=== PATIENT | female | born 1955 | race Two or more races ===

== ENCOUNTER 2022-08-12 16:18 | Inpatient (IN) | payer OTHER ==
[~2022-08-12] VITALS: Ht 165.1 cm; Wt 78.8 kg
[~2022-08-12 16:18] MED LIST: levoFLOXacin 750MG 150 ML IV ONE
[2022-08-12] MEDS ORDERED: KETOROLAC TROMETH 30 MG/ML 1ML VIAL IV ONE (17:00)
[2022-08-12] MEDS ORDERED: SODIUM CHLORIDE 0.9% 1,000 ML IVB ONE (17:00)
[2022-08-12 17:48] LABS: Basophils # (auto) 0.2 10 ^3/uL (0-0.2); Basophils % (auto) 1.2 % (0.0-2.0); Eosinophils # (auto) 0.1 10 ^3/uL (0-0.8); Eosinophils % (auto) 0.6 % (0.0-7.0); Hematocrit 37.5 % (36.0-46.0); Hemoglobin 12.3 g/dL (12.2-16.2); Lymphocytes # (auto) 1.8 10 ^3/uL (0.4-5.4); Lymphocytes % (auto) 13.4 % (10.0-50.0); Mean Corpuscular Hemoglobin 28.4 pg (28.0-32.0); Mean Corpuscular Hgb Conc. 32.7 g/dL (32.0-36.0); Mean Corpuscular Volume 86.9 fL (80.0-100.0); Monocytes # (auto) 0.7 10 ^3/uL (0-1.3); Monocytes % (auto) 5.6 % (0.0-12.0); Neutrophils # (auto) 10.4 10 ^3/uL (1.6-8.6); Neutrophils % (auto) 79.2 % (37.0-80.0); Red Blood Cells 4.32 10^6/uL (4.0-5.20); Red Cell Distribution Width 13.1 % (11.8-14.3); White Blood Cell 13.1 10^3/uL (4.4-10.8)
[2022-08-12 18:06] LABS: Albumin 3.2 g/dL (3.4-5.0); BUN/Creatinine Ratio 12.8; Calcium 8.4 mg/dL (8.5-10.1); Potassium 3.8 mmol/L (3.5-5.1)
[2022-08-12 18:09] LABS: Bilirubin, Total 1.1 mg/dL (0.2-1.0); Total Protein 6.9 g/dL (6.4-8.2)
[2022-08-12 18:41] LABS: Urine Bacteria FEW /hpf (None Seen); Urine Blood TRACE /uL (Negative); Urine Hyaline Cast FEW /lpf (0 - 2); Urine Mucus FEW (None Seen); Urine Specific Gravity 1.032 (1.001-1.035); Urine WBC 7 /hpf (0 - 5)
[2022-08-12] MEDS ORDERED: metroNIDAZOLE 500MG/100ML 100 ML IV ONE (18:45)
[2022-08-12] MEDS ORDERED: MORPHINE SULFATE 4 MG/ML SYR/VIAL IV ONE (18:45)
[2022-08-12] MEDS ORDERED: ONDANSETRON HCL 4 MG/2 ML VIAL IV ONE (18:45)
[2022-08-12] MEDS ORDERED: MORPHINE SULFATE INJ 2 MG/ml SYRG IV PRN (20:30)
[2022-08-12] MEDS ORDERED: ONDANSETRON HCL 4 MG/2 ML VIAL IV PRN (20:30)
[2022-08-12] MEDS ORDERED: DEXTROSE (50%) 50ML SYRG IV PRN (20:30)
[2022-08-12] MEDS ORDERED: SODIUM CHLORIDE 0.9% 1,000 ML IV SCH (20:30)
[2022-08-12] MEDS: InsuLIN REG 1unit/0.01ml Soln (100units/ml) SC SCH (22:00)
[2022-08-12 22:31] VITALS: BP 136/60
[2022-08-12] MEDS: metroNIDAZOLE 500MG/100ML 100 ML IV SCH (23:20)
[2022-08-12] MEDS: ACCU-CHEK COMFORT CURVE STRIP VI SCH (23:20)
[2022-08-13 04:52] VITALS: BP 143/57
[2022-08-13] MEDS: metroNIDAZOLE 500MG/100ML 100 ML IV SCH ×3 (05:29→21:13)
[2022-08-13 06:04] LABS: Basophils # (auto) 0.1 10 ^3/uL (0-0.2); Basophils % (auto) 0.8 % (0.0-2.0); Eosinophils # (auto) 0.1 10 ^3/uL (0-0.8); Eosinophils % (auto) 1.4 % (0.0-7.0); Hematocrit 34.4 % (36.0-46.0); Hemoglobin 11.9 g/dL (12.2-16.2); Lymphocytes # (auto) 1.1 10 ^3/uL (0.4-5.4); Lymphocytes % (auto) 11.8 % (10.0-50.0); Mean Corpuscular Hgb Conc. 34.4 g/dL (32.0-36.0); Mean Corpuscular Volume 87.1 fL (80.0-100.0); Monocytes # (auto) 0.6 10 ^3/uL (0-1.3); Monocytes % (auto) 6.7 % (0.0-12.0); Neutrophils # (auto) 7.3 10 ^3/uL (1.6-8.6); Neutrophils % (auto) 79.3 % (37.0-80.0); Red Blood Cells 3.96 10^6/uL (4.0-5.20); Red Cell Distribution Width 13.1 % (11.8-14.3); White Blood Cell 9.2 10^3/uL (4.4-10.8)
[2022-08-13 06:21] LABS: INR 1.07 (0.9-1.15); Partial Thromboplastin Time 35.9 sec (24.6-33.4)
[2022-08-13] MEDS: InsuLIN REG 1unit/0.01ml Soln (100units/ml) SC SCH ×4 (06:23→21:15)
[2022-08-13] MEDS: ACCU-CHEK COMFORT CURVE STRIP VI SCH ×4 (06:23→21:14)
[2022-08-13 06:24] LABS: BUN/Creatinine Ratio 18.8; Calcium 7.9 mg/dL (8.5-10.1)
[2022-08-13 08:00] VITALS: BP 139/55
[2022-08-13 09:00] VITALS: BP 130/59
[2022-08-13] MEDS: D5W/SOD CHL 0.45%/KCL 20MEQ 1,000 ML IV SCH ×2 (09:30→18:59)
[2022-08-13] MEDS ORDERED: levoFLOXacin 750MG 150 ML IV ONE (10:00)
[2022-08-13 13:00] VITALS: BP 139/55
[2022-08-13 17:00] VITALS: BP 125/53
[2022-08-13] MEDS: ENOXAPARIN SOD 40 MG/0.4 ML SYRINGE SC SCH (18:47)
[2022-08-13] MEDS: levoFLOXacin 750MG 150 ML IV SCH (18:48)
[2022-08-13 22:00] VITALS: BP 131/59
[2022-08-14] MEDS: D5W/SOD CHL 0.45%/KCL 20MEQ 1,000 ML IV SCH ×4 (02:10→22:18)
[2022-08-14 05:00] VITALS: BP 132/56
[2022-08-14 05:27] LABS: Basophils # (auto) 0.1 10 ^3/uL (0-0.2); Basophils % (auto) 1.2 % (0.0-2.0); Eosinophils # (auto) 0.1 10 ^3/uL (0-0.8); Eosinophils % (auto) 0.9 % (0.0-7.0); Hematocrit 35.4 % (36.0-46.0); Hemoglobin 11.8 g/dL (12.2-16.2); Lymphocytes # (auto) 1.1 10 ^3/uL (0.4-5.4); Lymphocytes % (auto) 15.4 % (10.0-50.0); Mean Corpuscular Hemoglobin 28.7 pg (28.0-32.0); Mean Corpuscular Hgb Conc. 33.4 g/dL (32.0-36.0); Mean Corpuscular Volume 85.9 fL (80.0-100.0); Monocytes # (auto) 0.5 10 ^3/uL (0-1.3); Monocytes % (auto) 7.1 % (0.0-12.0); Neutrophils # (auto) 5.3 10 ^3/uL (1.6-8.6); Neutrophils % (auto) 75.4 % (37.0-80.0); Nucleated Red Blood Cells % 0.1 %; Red Blood Cells 4.12 10^6/uL (4.0-5.20); Red Cell Distribution Width 12.7 % (11.8-14.3)
[2022-08-14 05:49] LABS: Albumin 2.6 g/dL (3.4-5.0); Calcium 7.8 mg/dL (8.5-10.1)
[2022-08-14 05:54] LABS: BUN/Creatinine Ratio 20.8; Bilirubin, Total 0.6 mg/dL (0.2-1.0); Total Protein 5.9 g/dL (6.4-8.2)
[2022-08-14] MEDS: ACCU-CHEK COMFORT CURVE STRIP VI SCH ×4 (06:42→21:04)
[2022-08-14] MEDS: metroNIDAZOLE 500MG/100ML 100 ML IV SCH ×3 (06:42→21:11)
[2022-08-14] MEDS: InsuLIN REG 1unit/0.01ml Soln (100units/ml) SC SCH ×4 (06:57→21:04)
[2022-08-14 09:00] VITALS: BP 139/58
[2022-08-14] MEDS: ENOXAPARIN SOD 40 MG/0.4 ML SYRINGE SC SCH (09:23)
[2022-08-14] MEDS: PANTOPRAZOLE 40 MG/10 ML VIAL INJ IV SCH (09:23)
[2022-08-14 12:42] VITALS: BP 127/53
[2022-08-14] MEDS: levoFLOXacin 750MG 150 ML IV SCH (15:48)
[2022-08-14 17:00] VITALS: BP 135/68
[2022-08-14 22:28] VITALS: BP 122/58
[2022-08-15] MEDS: ACCU-CHEK COMFORT CURVE STRIP VI SCH ×4 (04:34→21:45)
[2022-08-15] MEDS: InsuLIN REG 1unit/0.01ml Soln (100units/ml) SC SCH ×4 (04:34→21:44)
[2022-08-15 05:05] VITALS: BP 121/58
[2022-08-15] MEDS: metroNIDAZOLE 500MG/100ML 100 ML IV SCH ×3 (05:47→21:43)
[2022-08-15 06:07] LABS: Albumin 2.8 g/dL (3.4-5.0); BUN/Creatinine Ratio 16.5; Calcium 8.3 mg/dL (8.5-10.1)
[2022-08-15 06:10] LABS: Bilirubin, Total 0.6 mg/dL (0.2-1.0); Total Protein 6.2 g/dL (6.4-8.2)
[2022-08-15 08:46] VITALS: BP 131/56
[2022-08-15] MEDS: ENOXAPARIN SOD 40 MG/0.4 ML SYRINGE SC SCH (09:29)
[2022-08-15] MEDS: PANTOPRAZOLE 40 MG/10 ML VIAL INJ IV SCH (09:29)
[2022-08-15] MEDS: D5W/SOD CHL 0.45%/KCL 20MEQ 1,000 ML IV SCH (11:31)
[2022-08-15 12:30] VITALS: BP 130/56
[2022-08-15] MEDS: levoFLOXacin 750MG 150 ML IV SCH (15:10)
[2022-08-15 17:06] VITALS: BP 130/58
[2022-08-15 22:00] VITALS: BP 139/54
[2022-08-16] MEDS: D5W/SOD CHL 0.45%/KCL 20MEQ 1,000 ML IV SCH ×3 (01:00→14:06)
[2022-08-16 05:00] VITALS: BP 134/57
[2022-08-16] MEDS: metroNIDAZOLE 500MG/100ML 100 ML IV SCH ×3 (05:55→21:13)
[2022-08-16] MEDS: InsuLIN REG 1unit/0.01ml Soln (100units/ml) SC SCH ×4 (06:31→21:14)
[2022-08-16] MEDS: ACCU-CHEK COMFORT CURVE STRIP VI SCH ×4 (06:32→21:14)
[2022-08-16 08:29] VITALS: BP 152/57
[2022-08-16] MEDS: ENOXAPARIN SOD 40 MG/0.4 ML SYRINGE SC SCH (09:34)
[2022-08-16] MEDS: PANTOPRAZOLE 40 MG/10 ML VIAL INJ IV SCH (09:34)
[2022-08-16 12:00] VITALS: BP 119/59
[2022-08-16] MEDS: levoFLOXacin 750MG 150 ML IV SCH (15:16)
[2022-08-16 16:52] VITALS: BP 127/51
[2022-08-16 20:00] VITALS: BP 128/54
[2022-08-16 22:00] VITALS: BP 128/54
[2022-08-17] MEDS: D5W/SOD CHL 0.45%/KCL 20MEQ 1,000 ML IV SCH (01:55)
[2022-08-17] MEDS: metroNIDAZOLE 500MG/100ML 100 ML IV SCH (06:22)
[2022-08-17] MEDS: ACCU-CHEK COMFORT CURVE STRIP VI SCH ×2 (06:22→11:54)
[2022-08-17] MEDS: InsuLIN REG 1unit/0.01ml Soln (100units/ml) SC SCH ×2 (06:23→11:30)
[2022-08-17 08:57] VITALS: BP 123/57
[2022-08-17] MEDS: ENOXAPARIN SOD 40 MG/0.4 ML SYRINGE SC SCH (09:55)
[2022-08-17] MEDS: PANTOPRAZOLE 40 MG/10 ML VIAL INJ IV SCH (09:55)
[2022-08-17] MEDS ORDERED: CEPH-510 PO (12:22)
[2022-08-17] MEDS ORDERED: METR500T PO (12:22)
[2022-08-17 12:30] VITALS: BP 134/62
[2022-08-17 13:02] VITALS: BP 134/62
== END 2022-08-17 15:20 | disposition home health service (06) | DRG 872 ==
LOC: ER 16:18 → TELE 20:37 → CENTRAL 21:54
PROVIDERS: ADMIT Nurse Practitioner Family; ATTEND Nurse Practitioner Acute Care
DX: A41.9 Sepsis, unspecified organism (principal); N39.0 Urinary tract infection, site not specified; K57.20 Diverticulitis of large intestine with perforation and abscess without bleeding; R65.20 Severe sepsis without septic shock; E11.9 Type 2 diabetes mellitus without complications; E66.9 Obesity, unspecified; E78.5 Hyperlipidemia, unspecified; I10 Essential (primary) hypertension; Z20.822 Contact with and (suspected) exposure to COVID-19; Z87.440 Personal history of urinary (tract) infections; Z88.8 Allergy status to other drugs, medicaments and biological substances; Z88.0 Allergy status to penicillin; Z68.29 Body mass index [BMI] 29.0-29.9, adult
CPT/HCPCS: 36415; 74176; 80048; 80053; 81001; 82962; 83036; 83690; 85025; 85610; 85730; 87086; 93005; 96361; 96374; C9113; G0378; J1815; J1885; J1956; J3490